=== PATIENT | female | born 1970 | race Caucasian/White ===

== ENCOUNTER 2022-09-23 09:19 | Outpatient (CLI) | payer OTHER, SELFPAY ==
[2022-09-23 14:36] LABS: Albumin* 4.3 g/dL (3.3-5.0); Chloride* 107 mmol/L (96-114); Potassium* 3.9 mmol/L (3.6-5.1); Sodium* 143 mmol/L (135-149)
[2022-09-23 14:38] LABS: Cholesterol* 185 mg/dL (90-199); Creatinine* 0.8 mg/dL (0.5-1.5); Estimated Glomerular Filt Rate 88 ml/min
[2022-09-23 14:39] LABS: Alanine Aminotransferase* 48 U/L (4-35); Alkaline Phosphatase* 107 U/L (40-150); Aspartate Amino Transferase* 36 U/L (12-35); Bilirubin Total* 0.8 mg/dL (0.1-1.5); Blood Urea Nitrogen* 12 mg/dL (7-30); Carbon Dioxide* 29 mmol/L (20-32); Glucose* 110 mg/dL (60-115); Total Protein* 6.9 g/dL (6.0-8.3); Triglycerides* 169 mg/dL (40-149)
[2022-09-23 14:40] LABS: Calcium* 9.1 mg/dL (8.4-10.6); HDL Cholesterol* 50 mg/dL (>=50); LDL Cholesterol Calculated 101 mg/dL (<100)
== END 2022-09-23 09:20 | disposition home or self-care (01) ==
LOC: FRMREF 09:20
PROVIDERS: PCP Physician Assistant Medical; Visit Provider Physician Assistant Medical
DX: Z00.00 Encounter for general adult medical examination without abnormal findings (principal); I10 Essential (primary) hypertension; R73.9 Hyperglycemia, unspecified; R79.89 Other specified abnormal findings of blood chemistry; F41.9 Anxiety disorder, unspecified
CPT/HCPCS: 80053; 80061

== ENCOUNTER 2023-12-28 10:33 | Outpatient (CLI) | payer OTHER, SELFPAY ==
--- OUTSIDE RECORDS SUMMARY | 2023-12-30 08:06 | XMS_ITS | Data Portability ---
Author Name Unknown Address [address] [place] [address] Phone [phone] Organization [facility] AUDIOVISUAL LEAD TECHNICIAN, [id number] GROVE Address [address] [place] [address] Assessment No assessment recorded. Plan of Treatment Reminders Order Date Submit Date Provider Last Modified By Organization Details Last Modified Time Details Appointments None recorded. Lab cytology study, smear or scraping, cervical or vaginal 2021 022 [place] [facility], [address] [place], [address], 2 18:21:44 Referral None recorded. Procedures None recorded. Surgeries None recorded. Imaging None recorded. Medication Orders Depo-Prove ra 150 mg/mL intramuscu lar suspension 2019 020 [email or web address], [address], [place], [address], 2 10:31:35 venlafaxin e ER 75 mg capsule,ex tended release 24 hr 2019 020 INTERFACE [facility], [address], [place], [address], 0 10:58:43 Patient TargetsNo targets recorded. Patient Instructions Encounter Date Encounter Id Patient Instructions Last Modified By Organization Details Last Modified Time 01/01/2022 - Encouraged breast self-awareness and monthly breast exams. - Recommend mammogram annually starting at age 40. This was today. - Encouraged regular exercise. - Discussed calcium, vitamin D, and weight bearing exercise for bone health. - Recommend colonoscopy starting at age 44. She will schedule in the future. - Encouraged patient to establish care with a PCP to manage non-SHEEP SHEARER concerns if she does not already have one. - Reviewed current cervical cancer screening guidelines. Pap/HPV today. - Discussed common perimenopausal changes including vaginal dryness, hot flashes, night sweats, mood changes, and weight changes. Discussed when treatment is needed. -Primary MD following labs and she will continue to have BPs checked at home and address with primary MD. Not available 01/01/2022 10:51:36 05/17/2020 [id number] - Encouraged breast self-awareness and monthly breast exams. - Recommend mammogram annually starting at age 40. Needs Mammo and info given for her to schedule. - Encouraged regular exercise. - Discussed calcium, vitamin D, and weight bearing exercise for bone health. Labs per primary MD. - Recommend colonoscopy starting at age 45. Info given to schedule. - Encouraged patient to establish care with a PCP to manage non-SHEEP SHEARER concerns if she does not already have one. - Reviewed current cervical cancer screening guidelines. Due in 2020. - Discussed common perimenopausal changes including vaginal dryness, hot flashes, night sweats, mood changes, and weight changes. Discussed when treatment is needed. -Cont Depo Q 3 mo and stop at age 51. -Flu vaccine today. Not available 05/17/2020 10:58:15 Reason for Referral None Reported. Results Created Date Observation Date Name Description Value Unit Range Abnormal Flag LastModifiedBy Organization Detail LastModifiedTime 01/02/20 22 01/02/2022 IGP, APT HPV,R FX 16/18 ,45 HPV aptima negati ve negati ve Not Available [facility] ([facility]) [address], [place], [address], 01/03/2022 18:21:44 01/02/20 22 01/03/2022 IGP, APT HPV,R FX 16/18 ,45 interpretati on nilm Not Available [facility] ([facility]) [address], [place], [address], 01/03/2022 18:21:44 01/02/20 22 01/03/2022 IGP, APT HPV,R FX 16/18 ,45 category: nil Not Available [facility]) [address] [address], [place], [address], 01/03/2022 18:21:44 01/02/20 22 01/03/2022 IGP, APT HPV,R FX 16/18 ,45 adequacy: endo Not Available [facility] ([facility]) [address] [facility] [address], [place], [address], 01/03/2022 18:21:44 01/02/20 22 01/03/2022 IGP, APT HPV,R FX 16/18 ,45 clinician provided ICD10: micheal milan Not Available [facility] ([facility]) [id number] [place] [address], [place], [address], 01/03/2022 18:21:44 01/02/20 22 01/03/2022 IGP, APT HPV,R FX 16/18 ,45 performed by: micheal milan Not Available [facility] ([facility]) [id number] [place] [address], [place], [address], 01/03/2022 18:21:44 01/02/20 22 01/03/2022 IGP, APT HPV,R FX 16/18 ,45 note: micheal t Not Available [facility]) [address] [place] [address], [place], [address], 01/03/2022 18:21:44 01/02/20 22 01/03/2022 IGP, APT HPV,R FX 16/18 ,45 test methodology: micheal t Not Available [facility]) [address] [address], [place], [address], 01/03/2022 18:21:44 Result Notes None recorded. Problems Name Status Onset Date Resolution Date Notes Provider Name and Address Organization Details Recorded Time Essential hypertension Active 05/26/20 16 Not Available [facility] 03/21/2020 03:57:31 Dysfunctional uterine bleeding Active On Depo *Date Onset: 08/2015 Not Available [facility] 03/21/2020 03:57:32 Obesity Active Not Available [facility] 03/21/2020 03:57:32 Problem Notes None recorded. Procedures Surgical History Date Name Laterality Status Provider Name and Address Organization Details Recorded Time 2 Date of Last Mammogram completed Jen bear [facility] AUDIOVISUAL LEAD TECHNICIAN 03/09/2023 15:07:18 2 Date of Last Pap Smear completed Kelli bear [facility] AUDIOVISUAL LEAD TECHNICIAN 01/06/2022 09:24:36 Removal of adenoids completed Neela [facility] AUDIOVISUAL LEAD TECHNICIAN 11/26/2021 15:27:08 extraction of wisdom tooth completed Neela bear [facility] AUDIOVISUAL LEAD TECHNICIAN 11/26/2021 15:27:06 Imaging Results None recorded. Procedure Notes None recorded. Medical Equipment None Reported. Allergies No known drug allergies Medications Name Sig Start Date Stop Date Status Note LastModified by Organization Details LastModified Time cyclobenzap rine 10 mg tablet 05/17 completed Not Available Not Available Not Available venlafaxine ER 75 mg capsule,ext ended release 24 hr TAKE 1 CAPSULE BY MOUTH EVERY DAY active Not Available Not Available No t Available venlafaxine 75 mg tablet active Not Available Not Available Not Available ketoconazol e 2 % shampoo WASH SCALP 3 TIMES A WEEK active Not Available Not Available No t Available amlodipine 5 mg tablet TAKE 5 MG BY MOUTH DAILY DUE FOR AN APPT 01/01 completed Not Available Not Available Not Available valacyclovi r 500 mg tablet TAKE 1 TABLET BY MOUTH TWICE DAILY FOR 3 DAYS WITH OUTBREAK. active Not Available Not Available No t Available Depo-Meat Slicer a 150 mg/mL intramuscul ar suspension Inject 1 mL every 3 months by intramusc ular route. 01/01 completed Not Available Not Available Not Available amlodipine 10 mg tablet TAKE 1 TABLET BY MOUTH AT BEDTIME. active Not Available Not Available No t Available hydrocortis one 2.5 % topical cream active Not Available Not Available Not Available methylpredn isolone 4 mg tablets in a dose pack 05/17 completed Not Available Not Available Not Available ketoconazol e 2 % topical cream active Not Available Not Available Not Available losartan 100 mg tablet TAKE 1 TABLET BY MOUTH DAILY. *NEEDS APPT! active Not Available Not Available No t Available amoxicillin 875 mg-laine gaxiola clavulanate 125 mg tablet TAKE 1 TABLET BY MOUTH EVERY 12 HOURS FOR 7 DAYS active Not Available Not Available No t Available losartan 100 mg-hydrochl orothiazide 12.5 mg tablet TAKE 1 TABLET BY MOUTH EVERY MORNING active Not Available Not Available No t Available Vitals Date Recorded Body height Body mass index (BMI) Body weight Systolic blood pressure Diastolic blood pressure Provider Name and Address Organization Details Last Updated DateTime 01/01/2022 170.18 cm 48.1 kg/m2 817677.2 9 g 160 mm[Hg] 100 mm[Hg] Monique MENJIVAR - [place] AUDIOVISUAL LEAD TECHNICIAN 2 10:36:04 Date Recorded Body weight Body height Body mass index (BMI) Systolic blood pressure Diastolic blood pressure Provider Name and Address Organization Details Last Updated DateTime 05/26/2016 111269.6 89316 g 171.2976 cm 39.72 kg/m2 152 mm[Hg] 92 mm[Hg] Not Available [facility] 0 14:55:01 Date Recorded Body weight Body mass index (BMI) Body height Systolic blood pressure Diastolic blood pressure Provider Name and Address Organization Details Last Updated DateTime 10/26/2018 784887.7 873 g 56.64 kg/m2 152.4 cm 140 mm[Hg] 102 mm[Hg] Not Available [facility] 0 14:55:01 Date Recorded Body height Body weight Body mass index (BMI) Systolic blood pressure Diastolic blood pressure Provider Name and Address Organization Details Last Updated DateTime 08/01/2019 172.8216 cm 666018.3 4152 g 45.01 kg/m2 142 mm[Hg] 100 mm[Hg] Not Available [facility] 0 14:55:01 Date Recorded Body weight Body mass index (BMI) Body height Systolic blood pressure Diastolic blood pressure Provider Name and Address Organization Details Last Updated DateTime 06/19/2017 282733.9 33228 g 40.48 kg/m2 172.8216 cm 128 mm[Hg] 84 mm[Hg] Not Available [facility] 0 14:55:01 Date Recorded Body height Body mass index (BMI) Body weight Systolic blood pressure Diastolic blood pressure Systolic blood pressure Diastolic blood pressure Provider Name and Address Organization Details Last Updated DateTime 0 172.72 cm 47.5 kg/m2 842631. 54 g 152 mm[Hg] 100 mm[Hg] 132 mm[Hg] 100 mm[Hg] Tr MENJIVAR - AUDIOVISUAL LEAD TECHNICIAN 0 10:37:26 Social History Question Answer Notes LastModified by Ombu Details LastModified Time Tobacco Smoking Status Never Smoker Tr bear, TIARA - AUDIOVISUAL LEAD TECHNICIAN 05/17/2020 10:34:53 Do You Have An Advance Directive? No [email or web address] Information not available 05/17/2020 What Is Your Level Of Alcohol Consumption? Occasional [email or web address] Information not available 05/17/2020 What Is Your Level Of Caffeine Consumption? Occasional [email or web address] Information not available 05/15/2020 How Much Tobacco Do You Chew? None [email or web address] Information not available 05/17/2020 Are You Currently Employed? Yes Information not available 05/17/2020 Do You Or Have You Ever Used E-cigarettes Or Vape? 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 1-2 Times Per Week Information not available 01/01/2022 History Of Domestic Violence No [email or web address] Information no t available 03/21/2020 What Was The Date Of Your Most Recent Tobacco Screening? 05/17/2020 Information not available 05/17/2020 What Is Your Relationship Status? [email or web address] Information not available 11/26/2021 Sex: Female Functional Status Question Answer Note LastModified by Ombu Details LastModified Time What is your exercise level? Occasional Information not available 01/01/2022 Mental Status None recorded. Family History Relationship Description Onset Age of this Age Resolved Age Notes Daughter Family history of diabetes mellitus Mother Malignant tumor of lung Father Malignant tumor of lung Unspecified Relation Acute stroke Brother Depressive disorder Paternal Aunt Deep venous thrombosis Son Heart disease Medical History Condition Response Weight Management/Obesity Y Cardiology- High Blood Pressure Y Gynecological History Statement/Question Response HPV Test Negative Total lifetime partners More than 5 Date of Last Mammogram 01/01/2022 Date of Last Diabetes Screening 05/26/20 16 14 Other Date of last bone density Date of Last Colonoscopy Age at first intercourse 14 Y Current Control Method None Date of Last Pap Smear 01/01/2022 Date of Last Cholesterol Screening 10/15 Obstetrics History GPAL:G 1 P 1 0 0 1 Type Value Multiple Births 0 Full Term 1 Induced 0 Spontaneous 0 Premature 0 Living 1 Ectopics 0 Total 1 Immunizations Vaccine Type Date Status Provider Name and Address Organization Details Recorded Time Tdap 08/17/2013 [facility] AUDIOVISUAL LEAD TECHNICIAN 05/17/2020 10:33:10 COVID-19 vaccine, vector-nr, rS-Ad26, PF, 0.5 mL 11/22/2020 completed TI[facility] AUDIOVISUAL LEAD TECHNICIAN 01/01/2022 08:18:26 COVID-19 vaccine, vector-nr, rS-Ad26, PF, 0.5 mL 07/10/2021 completed Monique bear [facility] AUDIOVISUAL LEAD TECHNICIAN 01/01/2022 08:18:33 influenza, injectable, quadrivalent, preservative free 05/17/2020 completed [facility] AUDIOVISUAL LEAD TECHNICIAN 05/17/2020 10:59:37 influenza, injectable, quadrivalent, preservative free 05/26/2016 completed Not Available [facility] 0 09:24:24 Past Encounters Encounter ID Performer Location Encounter Start Date Encounter Closed Date Diagnosis/Indication Diagnosis SNOMED-CT Code [id number] TR FREITAS MD [id number] ALE_[address] TIARA WATKINS [id number] 05/17/2020 10:19:15 05/17/2020 10:59:12 Gynecologic examination 73822061 Administra tion of influenza vaccine [id number] Depressive disorder 3382 5603 [id number] WILFREDO ARENAS MD [id number] ALE_[place] [address] [place] [address],[address] TIARA HERNANDEZ [id number] 08/15/2020 14:02:14 08/16/2020 12:57:26 Contraception care management [id number] TR FREITAS MD [id number] ALE_[place] [address] [place] [address] TI[place] HERNANDEZ [id number] 01/01/2022 10:26:05 01/02/2022 11:50:13 Gynecologic examination 91102377 Health Concerns Section Related Observation LastModified by Organization Detai ls LastModified Time None Recorded Concern Status LastModified by Organization Details LastModified Time None Recorded Advance Directives Directive N: Payers Encounter Date Sequence Insurance Name Policy Number Policy Sneed Covered Member ID Sneed Member ID Guarantor Name 01/01/2022 1 [place] [id number] F Mayank Mccormick [id number] Gabi Mccormick 08/15/2020 1 [place] [id number] F Mayank Mccormick [id number] Gabi Mccormick 05/17/2020 1 [place] [id number] F Mayank Mccormick [id number] Gabi Mccormick Notes Date Note Type Note Provider Name and Address Organization Details Recorded Time 05/17/2020 text/html HPI Notes: This is a who presents for her annual exam. Roomed by Tr . Patient declines onyx chip terrazzo worker for her breast and/or pelvic exam. Her Primary Care Provider is Dr. Roberson , she does not have an advanced directive The patient does not want STD testing. The patient does not use tobacco Her menses absent due to contraception Her cycles are She is using depo provera for contraception. She is on Depoprovera. . Since her last SHEEP SHEARER annual exam 1 year ago. She has no significant health changes. Primary MD does her labs and this was recent. . She is having no significant [place] [address] [facility],[address], [place], [address], [facility] AUDIOVISUAL LEAD TECHNICIAN 05/17/2020 10:58:41 01/01/2022 text/html HPI Notes: This is a who presents for her annual exam. Roomed by Monique Patient declines onyx chip terrazzo worker for her breast and/or pelvic exam Her Primary Care Provider is Dr. Ramesh , she does not have an advanced directive The patient does not want STD testing The patient does not use tobacco Her menses are no longer present and not taking HRT medications. Stopped Depo one year ago and no periods. Since her last SHEEP SHEARER annual exam ago. She has no significant health changes. Pap/HPV done in 2016. She is having no significant SHEEP SHEARER issuesPrimary MD is following labs. BP is markedly elevated today at 160/100 and they have been watching this. BPs at home 120/80[place] [address] [facility],[address], [place], [address], [place] [facility] AUDIOVISUAL LEAD TECHNICIAN 01/01/2022 10:51:56 OBGyn Episode Ob Episode Information Episode Created Date Number of Fetuses Patient Bloodtype Patient rh Status Prepregnancy Weight lbs Domestic Partner Domestic Partner Phone Father Name Bottom Pounder Cement Shoes Status 05/15/20 20 1 CLOSED Fetus Data First Name Last Name Admitted to NICU Weight (g) Sex Living Outcome Pediatric Complications Fetus ID Race Codes Race Delivery Type [phone] 1 F Full Term [id number] Niko Calculation Initial Niko Date Initial Exam Date Initial Exam Provider Initial Ultrasound Date Last Menstrual Period Date Ultra Sound Weeks Gestation 0 Eighteen To Twenty Week Niko Update Ultra Sound Date Fundal Height At Umbil Quickening Date Ultra Sound Latest Weeks Gestation Final Niko Confirmed By Final Niko Confirmed Date Final Niko Date Ultra Sound Latest Days Gestation 0 0 Menstrual History Last Menstrual Date Menses Monthly On Bcp Conception Prior Menses Frequency Hcg Plus Date Menarche Onset Age Delivery Information Delivery Date Delivery Type Labor Anesthesia Weeks Gestation Incision Type Labor Labor Length Hrs Delivered By Post Complications Tubal Sterilization Discharge Date Comments 4 39 Discharge Information Feeding Method Contraceptive Method Maternal HG B and HCT Levels
== END 2023-12-28 10:34 | disposition home or self-care (01) ==
LOC: NFLDREF 12-30 08:05
PROVIDERS: PCP Physician Assistant Medical; Referring Provider Physician Assistant Medical; Visit Provider Physician Assistant Medical
DX: Z00.00 Encounter for general adult medical examination without abnormal findings (principal); I10 Essential (primary) hypertension; F41.9 Anxiety disorder, unspecified; R53.83 Other fatigue; R73.9 Hyperglycemia, unspecified
CPT/HCPCS: 80053; 80061; 82306; 84443

== ENCOUNTER 2025-07-17 10:03 | Outpatient (CLI) | payer OTHER, SELFPAY | END 2025-07-17 10:04 | disposition home or self-care (01) | LOC: NFLDREF 07-20 12:40 | PROVIDERS: PCP Physician Assistant Medical; Referring Provider Physician Assistant Medical; Visit Provider Physician Assistant Medical | DX: Z13.9 Encounter for screening, unspecified (principal); R79.89 Other specified abnormal findings of blood chemistry; Z13.6 Encounter for screening for cardiovascular disorders | CPT/HCPCS: 80053; 80061; 82306 ==